=== PATIENT | female | born 1985 | race Caucasian/White ===

== ENCOUNTER 2019-01-16 10:29 | Outpatient (CLI) | payer MEDICAID ==
--- NOTE | 2019-01-16 11:33 | MMO ---
MAMMO Bilat Diag [facility]. CLINICAL HISTORY: Patient is 33 years old and is seen for diagnostic exam. The patient has no family history of breast cancer. The patient has no personal history of cancer. The patient has a history of bilateral Breast reduction at age 22 - benign. VIEWS: The views performed were: bilateral craniocaudal with tomosynthesis; bilateral mediolateral oblique with tomosynthesis; bilateral mediolateral; and bilateral exaggerated craniocaudal. FILMS COMPARED: The present examination has been compared to prior imaging studies performed at [facility] on 01/15/2019 and 01/16/2019. MAMMOGRAM FINDINGS: There are scattered fibroglandular densities. Benign calcifications are noted bilaterally. There are no suspicious masses, calcifications or areas of architectural distortion. No mammographic or sonograhic abnormality is seen at the site of palpable concern in the right breast (11:00). IMPRESSION: FINDINGS IN BOTH BREASTS ARE BENIGN. AGE APPROPRIATE SCREENING BASED ON RISK FACTORS IS RECOMMENDED. THE RESULTS OF THIS EXAM WERE SENT TO THE PATIENT. ACR BI-RADS Category 2 - Benign finding MAMMOGRAPHY NOTE: 1. A negative mammogram report should not delay a biopsy if a dominant of clinically suspicious mass is present. 2. Approximately 10% to 15% of breast cancers are not detected by mammography. 3. Adenosis and dense breasts may obscure an underlying neoplasm.
--- NOTE | 2019-01-16 12:23 | ULT ---
RIGHT BREAST ULTRASOUND: Date: 01/16/19 HISTORY: Palpable abnormality at the 11 o'clock position of the right breast. FINDINGS: Correlation is made with the mammograms of the same date. Sonographic evaluation of the region of the palpable concern at the 11 o'clock position of the right breast, 11.0 cm from the nipple, demonstrates no abnormality. IMPRESSION: BIRADS Category 2 - Benign findings. Return to annual mammographic screening. Further evaluation (including biopsy) of the region of palpable concern should be based on clinical f indings/suspicion. POS: OFF
== END 2019-01-16 10:30 | disposition home or self-care (01) ==
LOC: BICMAMMO 10:29
PROVIDERS: ATTEND Family Medicine
DX: R92.8 Other abnormal and inconclusive findings on diagnostic imaging of breast (principal)
CPT/HCPCS: 77066; G0279

== ENCOUNTER 2024-08-12 11:04 | Inpatient (IN) | payer OTHER ==
[2024-08-12 11:40] LABS: Actual Bicarbonate (HCO3v) 18.8 mEq/L (22-28); Analyzer IN Cardio ER; Base Excess -4.6 mEq/L (-2.0 to +3.0); Calcium, Ionized (venous) 1.09 mmol/L (1.16-1.32); Chloride (VBG) 99 mmol/L (98-106); Hematocrit-VBG 41 % (36.0-47.0); Potassium (VBG) 3.87 mmol/L (3.70-5.30); Sodium 132 mmol/L (133-146); pH (venous) 7.411 (7.32-7.43)
[2024-08-12 12:03] LABS: BHCG - Serum Indeterminate (NEGATIVE); Pregs Control Background? CLEAR/WHITE (CLR/WHITE); Pregs Control Bar Appear? YES (CONTROL BAR)
[2024-08-12 12:16] LABS: ALT (SGPT) 28 U/L (8-55); AST (SGOT) 21 U/L (5-34); Albumin 3.7 g/dL (3.5-5.0); Alkaline Phosphatase 290 U/L (40-110); Anion Gap 15 mmol/L (10-20); BUN (Urea Nitrogen) 15 mg/dL (7.0-18.7); Bilirubin, Total 0.1 mg/dL (0.2-1.2); Calc. Creatinine Clearance 0 mL/min (70-130); Calcium 9.6 mg/dL (7.8-10.44); Carbon Dioxide 19 mmol/L (22-29); Chloride 100 mmol/L (98-107); Estimated GFR 71; Globulin 3.8 g/dL (2.4-3.5); Glucose 579 mg/dL (70-105); Lipase 13 U/L (8-78); Potassium 3.9 mmol/L (3.5-5.1); Protein, Total 7.5 g/dL (6.0-8.3); Reflex for Review?? YES; Sodium 130 mmol/L (136-145)
[2024-08-12 12:17] LABS: Hematocrit 39.6 % (36.0-47.0); Hemoglobin 13.1 g/dL (12.0-16.0); Mean Corpuscular HGB CONC 33.1 g/dL (32.0-36.0); Mean Corpuscular Hemoglobin 29.5 pg (27.0-31.0); Mean Corpuscular Volume 89.2 fL (78.0-98.0); Mean Platelet Volume 10.8 fL (7.4-10.4); Platelet Count 439 10x3/uL (130-400); RBC Distribution Width 12.9 % (11.5-14.5); Red Blood Cell (RBC) Count 4.44 mill/uL (4.20-5.40)
[2024-08-12 12:57] LABS: Band 25 % (5-11); Lymphocytes 6 % (21-51); Monocytes 12 % (0-10); Neutrophil 57 % (42-75); Platelet Adequacy Comment Platelets Increased; Polychromasia SLIGHT = 2-3 cells HPF (0-2)
[2024-08-12 13:18] LABS: Bacteria/HPF None Seen HPF (None Seen); Bilirubin Negative (Negative); Blood, Urine Negative (Negative); CAUTI Indications for Culture Immunosuppressed; Clarity Clear (Clear); Glucose, Urine (Dipstick) Greater than 1000 mg/dL (Negative); Ketone, Urine Negative (Negative); Leukocyte Negative Leu/uL (Negative); Nitrite Negative (Negative); Protein, Urine (Dipstick) Negative (Neg-Trace); RBC/HPF 0-3 HPF (0-3); Squamous Epithelial 0-3 HPF (0-3); Urobilinogen Normal mg/dL (Less than 2); WBC/HPF 0-3 HPF (0-3); pH, Urine 5.5 (5.0-9.0)
[2024-08-12 13:21] LABS: Urine Culture Reflex Yes Yes
[2024-08-12] MEDS ORDERED: Senokot S 8.6-50 MG TAB PO PRN (13:30)
[2024-08-12] MEDS ORDERED: Dextrose 50% Abboject 50 ML SYRINGE SLOW IVP PRN ×2 (13:35→20:02)
[2024-08-12] MEDS ORDERED: Dextrose 5% in Water 1,000 ML IV PRN ×2 (13:35→20:02)
[2024-08-12] MEDS ORDERED: Glucagon 1 MG/ML KIT IM PRN ×2 (13:35→20:02)
[2024-08-12] MEDS: Sodium Chloride 0.9% 1,000 ML IV SCH ×2 (15:25→17:44)
[2024-08-12] MEDS ORDERED: Loperamide HCl 2 MG CAP PO SCH (15:30)
[2024-08-12 16:35] LABS: Glucose POC Confirmation 338 mg/dL (70-105)
[2024-08-12 16:36] LABS: Lactic Acid 1.66 mmol/L (0.5-2.2)
[2024-08-12] MEDS ORDERED: Insulin Lispro 100 UNIT/ML 10 ML VIAL ONE (17:40)
[2024-08-12] MEDS: Insulin Lispro 100 UNIT/ML 10 ML VIAL SC SCH (17:45)
[2024-08-12] MEDS ORDERED: Loperamide HCl 2 MG CAP PO PRN (18:00)
[2024-08-12 18:47] VITALS: BMI 30.2
[2024-08-12] MEDS: Metoprolol Tartrate 25 MG TAB PO SCH (20:58)
[2024-08-12] MEDS: Insulin Glargine 30 UNITS/0.3 ML VIAL SC SCH (20:58)
[2024-08-12] MEDS: Insulin Lispro 100 UNIT/ML 10 ML VIAL SC PRN (21:01)
[2024-08-12] MEDS: tiZANidine HCl 4 MG TAB PO PRN (23:25)
[2024-08-12] MEDS: Gabapentin 300 MG CAP PO SCH (23:26)
[2024-08-13 04:04] LABS: Hematocrit 34.3 % (36.0-47.0); Hemoglobin 10.9 g/dL (12.0-16.0); Mean Corpuscular HGB CONC 31.8 g/dL (32.0-36.0); Mean Corpuscular Hemoglobin 28.9 pg (27.0-31.0); Mean Platelet Volume 10.9 fL (7.4-10.4); Platelet Count 370 10x3/uL (130-400); RBC Distribution Width 13.1 % (11.5-14.5); Red Blood Cell (RBC) Count 3.77 mill/uL (4.20-5.40)
[2024-08-13 04:18] LABS: ALT (SGPT) 23 U/L (8-55); AST (SGOT) 21 U/L (5-34); Albumin 2.9 g/dL (3.5-5.0); Alkaline Phosphatase 238 U/L (40-110); Anion Gap 12 mmol/L (10-20); BUN (Urea Nitrogen) 12 mg/dL (7.0-18.7); Bilirubin, Total 0.1 mg/dL (0.2-1.2); Calc. Creatinine Clearance 131 mL/min (70-130); Calcium 8.4 mg/dL (7.8-10.44); Carbon Dioxide 21 mmol/L (22-29); Chloride 108 mmol/L (98-107); Estimated GFR 99; Globulin 3.3 g/dL (2.4-3.5); Glucose 441 mg/dL (70-105); Potassium 3.7 mmol/L (3.5-5.1); Protein, Total 6.2 g/dL (6.0-8.3); Sodium 137 mmol/L (136-145)
[2024-08-13 04:50] LABS: Band 53 % (5-11); Dohle Bodies SLIGHT; Eosinophils 1 % (0-10); Lymphocytes 5 % (21-51); Metamyelocyte 8 % (0-0); Monocytes 5 % (0-10); Myelocyte 1 % (0-0); Neutrophil 27 % (42-75); Platelet Adequacy Comment Platelets Normal; Polychromasia SLIGHT = 2-3 cells HPF (0-2); Toxic Granulation MODERATE; Vacuoles SLIGHT
[2024-08-13] MEDS: Insulin Lispro 100 UNIT/ML 10 ML VIAL SC PRN (05:09)
[2024-08-13] MEDS: Aspirin Chewable 81 MG TAB PO SCH (08:47)
[2024-08-13] MEDS: Gabapentin 300 MG CAP PO SCH (08:47)
[2024-08-13] MEDS: Insulin Lispro 100 UNIT/ML 10 ML VIAL SC SCH ×4 (08:48→17:02)
[2024-08-13] MEDS: Enoxaparin 40 MG (0.4 mL) SYRINGE SC SCH (08:48)
[2024-08-13] MEDS: Insulin Glargine 30 UNITS/0.3 ML VIAL SC SCH ×3 (08:52→20:19)
[2024-08-13 10:18] VITALS: BMI 30.2
[2024-08-13] MEDS: Sodium Chloride 0.9% 1,000 ML IV SCH (11:52)
[2024-08-13] MEDS ORDERED: Insulin Lispro 100 UNIT/ML 10 ML VIAL SC SCH (12:00)
[2024-08-13] MEDS: Calcium Carbonate 500 MG ChewTAB PO PRN (19:41)
[2024-08-13] MEDS: Ondansetron PF 4 MG/2 ML Vial IVP PRN (19:41)
[2024-08-14] MEDS: Acetaminophen 325 MG TAB PO PRN (05:41)
[2024-08-14 05:51] LABS: Hematocrit 35.7 % (36.0-47.0); Hemoglobin 11.8 g/dL (12.0-16.0); Mean Corpuscular HGB CONC 33.1 g/dL (32.0-36.0); Mean Corpuscular Hemoglobin 29.2 pg (27.0-31.0); Mean Corpuscular Volume 88.4 fL (78.0-98.0); Mean Platelet Volume 10.7 fL (7.4-10.4); Platelet Count 348 10x3/uL (130-400); RBC Distribution Width 13.3 % (11.5-14.5); Red Blood Cell (RBC) Count 4.04 mill/uL (4.20-5.40)
[2024-08-14 06:17] LABS: Band 29 % (5-11); Eosinophils 1 % (0-10); Lymphocytes 6 % (21-51); Metamyelocyte 4 % (0-0); Monocytes 5 % (0-10); Myelocyte 6 % (0-0); Neutrophil 50 % (42-75); Platelet Adequacy Comment Platelets Normal; Polychromasia SLIGHT = 2-3 cells HPF (0-2); Smudge Cells 36.9 %
[2024-08-14 06:27] LABS: Hemoglobin A1c 10.6 % (4.0-6.0)
[2024-08-14 06:34] LABS: Anion Gap 11 mmol/L (10-20); BUN (Urea Nitrogen) 11 mg/dL (7.0-18.7); Calc. Creatinine Clearance 138 mL/min (70-130); Calcium 9.8 mg/dL (7.8-10.44); Carbon Dioxide 25 mmol/L (22-29); Chloride 105 mmol/L (98-107); Estimated GFR 105; Glucose 270 mg/dL (70-105); Potassium 3.4 mmol/L (3.5-5.1); Sodium 138 mmol/L (136-145)
[2024-08-14] MEDS: traMADol HCl 50 MG TAB PO PRN (09:12)
[2024-08-14] MEDS: Potassium Chloride 20 MEQ TAB PO SCH (10:04)
[2024-08-14 11:18] VITALS: BP 125/87; TEMP 98.2
== END 2024-08-14 11:17 | disposition home or self-care (01) | DRG 638 ==
LOC: ERS 11:04 → SUATTDRO 11:04 → ERHOLD 13:20 → MSONC 18:37
PROVIDERS: ADMIT Internal Medicine; ATTEND Family Medicine
DX: E11.65 Type 2 diabetes mellitus with hyperglycemia (principal); C25.9 Malignant neoplasm of pancreas, unspecified; D72.829 Elevated white blood cell count, unspecified; I10 Essential (primary) hypertension; F41.9 Anxiety disorder, unspecified; F31.9 Bipolar disorder, unspecified; T45.1X5A Adverse effect of antineoplastic and immunosuppressive drugs, initial encounter; Z79.4 Long term (current) use of insulin; Z88.8 Allergy status to other drugs, medicaments and biological substances; Z91.012 Allergy to eggs; Z98.51 Tubal ligation status; Z92.21 Personal history of antineoplastic chemotherapy
CPT/HCPCS: 36415; 36416; 71045; 80048; 80053; 81001; 82010; 82805; 83036; 83605; 83690; 83930; 84703; 85025; 85060; 87086; 93005; 96374; J1642; J1650; J1815; J2405; J7030

== ENCOUNTER 2024-12-07 08:36 | Outpatient (CLI) | payer OTHER ==
[2024-12-07] MEDS ORDERED: Iopamidol 370 76% 100 ML VIAL ONE (09:10)
== END 2024-12-07 08:37 | disposition home or self-care (01) ==
LOC: CT 08:36
PROVIDERS: ATTEND Internal Medicine Hematology & Oncology
DX: C25.3 Malignant neoplasm of pancreatic duct (principal)
CPT/HCPCS: 71260; 74177; J1642

== ENCOUNTER 2025-06-25 03:30 | Emergency (ER) | payer OTHER, SELFPAY ==
[2025-06-25 03:43] LABS: Analyzer IN Cardio ER; Base Excess -10.1 mEq/L (-2.0 to +3.0); Calcium, Ionized (venous) 1.38 mmol/L (1.16-1.32); Chloride (VBG) 104 mmol/L (98-106); Hematocrit-VBG 21 % (36.0-47.0); Hemoglobin (Hb) 7.2 g/dL (11.7-15.5); Potassium (VBG) 5.54 mmol/L (3.70-5.30); Sodium 137 mmol/L (133-146)
[2025-06-25 03:44] LABS: Actual Bicarbonate (HCO3v) 14.9 mEq/L (22-28)
[2025-06-25 04:19] LABS: Hematocrit 42.5 % (36.0-47.0); Hemoglobin 14.0 g/dL (12.0-16.0); Mean Corpuscular Hemoglobin 29.7 pg (27.0-31.0); Mean Corpuscular Volume 90.2 fL (78.0-98.0); Platelet Count 417 10x3/uL (130-400); Red Blood Cell (RBC) Count 4.71 mill/uL (4.20-5.40); White Blood Cell (WBC) Count 13.93 10x3/uL (4.8-10.8)
[2025-06-25 04:30] LABS: ALT (SGPT) 50 U/L (Less than 34); AST (SGOT) 58 U/L (11-34); Albumin 4.1 g/dL (3.1-4.5); Alkaline Phosphatase 177 U/L (40-110); Anion Gap 17 mmol/L (10-20); BUN (Urea Nitrogen) 15 mg/dL (7.0-18.7); Bilirubin, Total 0.3 mg/dL (0.3-1.2); Calc. Creatinine Clearance 0 mL/min (70-130); Calcium 9.6 mg/dL (7.8-10.44); Carbon Dioxide 21 mmol/L (22-29); Chloride 97 mmol/L (98-107); Globulin 4.5 g/dL (2.4-3.5); Glucose 627 mg/dL (70-105); Lipase 20 U/L (8-78); Magnesium 2.2 mg/dL (1.6-2.6); Potassium 4.5 mmol/L (3.5-5.1); Sodium 130 mmol/L (136-145)
[2025-06-25 04:34] LABS: Bacteria/HPF None Seen HPF (None Seen); CAUTI Indications for Culture Pelvic or flank pain; Glucose, Urine (Dipstick) Greater than 1000 mg/dL (Negative); Leukocyte Negative Leu/uL (Negative); Protein, Urine (Dipstick) Negative (Neg-Trace); RBC/HPF 0-3 HPF (0-3); Specific Gravity, Urine 1.034 (1.002-1.036); WBC/HPF 0-3 HPF (0-3)
[2025-06-25 04:49] LABS: Platelet Adequacy Comment Platelets Increased; RBC Morphology Within Normal Limits; Smudge Cells 25.5 %
[2025-06-25 04:56] LABS: BHCG - Serum Negative (NEGATIVE); Pregs Control Background? CLEAR/WHITE (CLR/WHITE); Pregs Control Bar Appear? YES (CONTROL BAR)
[2025-06-25 04:56] LABS: Urine Culture Reflex No No
[2025-06-25] MEDS ORDERED: Ketorolac Tromethamine 30 MG (1 mL) VIAL ONE (06:19)
== END 2025-06-25 07:01 | disposition home or self-care (01) ==
LOC: ERS 03:30
DX: E10.65 Type 1 diabetes mellitus with hyperglycemia (principal); Z79.4 Long term (current) use of insulin
CPT/HCPCS: 36415; 36416; 71045; 80053; 81001; 82010; 82805; 83690; 83735; 84100; 84703; 85025; 93005; 94760; 96374; 96375; J1642; J1815; J1885

== ENCOUNTER 2025-08-16 11:08 | Outpatient (CLI) | payer OTHER ==
[~2025-08-16 11:08] MED LIST: Iopamidol 370 76% 100 ML VIAL ONE
== END 2025-08-16 11:09 | disposition home or self-care (01) ==
LOC: CT 11:08
PROVIDERS: ATTEND Internal Medicine Hematology & Oncology
DX: C25.3 Malignant neoplasm of pancreatic duct (principal); R16.0 Hepatomegaly, not elsewhere classified; K76.0 Fatty (change of) liver, not elsewhere classified; Z98.890 Other specified postprocedural states
CPT/HCPCS: 71260; 74177; Q9967

== ENCOUNTER 2025-10-28 14:25 | Outpatient (CLI) | payer OTHER ==
[~2025-10-28 14:25] MED LIST changes: -Iopamidol 370 76% 100 ML VIAL ONE; +Iopamidol-370 76% 500 ML MDV (1 ML CHARGE) ONE
== END 2025-10-28 14:26 | disposition home or self-care (01) ==
LOC: CT 14:25
PROVIDERS: ATTEND Internal Medicine Hematology & Oncology
DX: C25.3 Malignant neoplasm of pancreatic duct (principal); M79.89 Other specified soft tissue disorders; Z90.81 Acquired absence of spleen; Z98.890 Other specified postprocedural states
CPT/HCPCS: 71260; 74177

== ENCOUNTER 2025-11-10 11:45 | Outpatient (CLI) | payer OTHER | END 2025-11-10 11:46 | disposition home or self-care (01) | LOC: PET 11:45 | PROVIDERS: ATTEND Internal Medicine Hematology & Oncology | DX: C25.3 Malignant neoplasm of pancreatic duct (principal); R94.8 Abnormal results of function studies of other organs and systems | CPT/HCPCS: 78815; A9552 ==